=== PATIENT | male | born 1980 | race Two or more races ===

== ENCOUNTER 2016-12-18 17:48 | Emergency (ER) | payer SELFPAY ==
[2016-12-18 18:19] VITALS: BMI 28.5
== END 2016-12-18 18:18 | disposition left against medical advice (07) ==
LOC: ED 17:48
DX: Z02.89 Encounter for other administrative examinations (principal)

== ENCOUNTER 2017-03-26 11:19 | Emergency (ER) | payer SELFPAY ==
[2017-03-26 11:21] VITALS: BMI 28.5
[2017-03-26 11:50] VITALS: O2SAT 100
--- NOTE | 2017-03-26 12:03 | ED PDOC ---
Arrival/HPI - General Chief Complaint: Psychiatric Evaluation Time Seen by Provider: 03/26/17 11:33 Historian: Patient - History of Present Illness Narrative History of Present Illness (Text): 03/26/17 12:04 A 36 year old male with no significant past medical history, presents to the emergency department with complaints of feeling depressed for several months. The patient states that he has been having family problems as well as having lost his job 1 year ago. He notes he has been more irritable than normal lately. He states that he thought it would be a good idea to speak to someone about his depression. The patient denies fevers, chills, headache, dizziness, chest pain, shortness of breath, dyspnea on exertion, cough, abdominal pain, nausea, vomiting, diarrhea, back pain, neck pain, urinary/bowel changes, suicidal/homicidal ideation, auditory/visual hallucination, drug/alcohol use or any other complaint. PMD: None Time/Duration: Other (Several Months) Symptom Onset: Sudden Symptom Course: Unchanged Context: Home Past Medical History - Provider Review Nursing Documentation Reviewed: Yes - Infectious Disease Hx of Infectious Diseases: None - Psychiatric Hx Substance Use: No Family/Social History - Physician Review Nursing Documentation Reviewed: Yes Family/Social History: No Known Family HX (Non-contributory) Smoking Status: Unknown If Ever Smoked Hx Alcohol Use: No Hx Substance Use: No Allergies/Home Meds Allergies/Adverse Reactions: Allergies No Known Allergies Allergy (Verified 12/18/16 17:59) Home Medications: Home Meds Medication Instructions Recorded Confirmed No Known Home Med 12/18/16 03/26/17 Review of Systems - Review of Systems Constitutional: absent: Fevers Respiratory: absent: SOB Cardiovascular: absent: Chest Pain Gastrointestinal: absent: Abdominal Pain Psychiatric: Depression. absent: Suicidal Ideation Physical Exam Vital Signs Reviewed: Yes Vital Signs Temp Pulse Resp BP Pulse Ox 03/26/17 14:22 97.9 F 86 18 150/82 100 03/26/17 11:21 97.8 F 95 H 15 137/84 100 Appearance: Positive for: Well-Appearing, Non-Toxic, Comfortable Pain Distress: None Mental Status: Positive for: Alert and Oriented X 3 - Systems Exam Head: Present: Atraumatic, Normocephalic Pupils: Present: PERRL Extroacular Muscles: Present: EOMI Conjunctiva: Present: Normal Mouth: Present: Moist Mucous Membranes Neck: Present: Normal Range of Motion Respiratory/Chest: Present: Clear to Auscultation, Good Air Exchange. No: Respiratory Distress, Accessory Muscle Use Cardiovascular: Present: Regular Rate and Rhythm, Normal S1, S2. No: Murmurs Abdomen: Present: Normal Bowel Sounds. No: Tenderness, Distention, Peritoneal Signs Back: Present: Normal Inspection Upper Extremity: Present: Normal Inspection. No: Cyanosis, Edema Lower Extremity: Present: Normal Inspection. No: Edema Neurological: Present: GCS=15, CN II-XII Intact, Speech Normal Skin: Present: Warm, Dry, Normal Color. No: Rashes Psychiatric: Present: Alert, Oriented x 3, Normal Insight, Normal Concentration Medical Decision Making ED Course and Treatment: 03/26/17 12:08 Impression: A 36 year old male presents to the emergency department with complaints of feeling depressed. Plan: -- Reassess and disposition Progress Notes: 03/26/17 12:06: PES was paged. 03/26/17 14:08: Patient was evaluated by PES worker. - Scribe Statement The provider has reviewed the documentation as recorded by the Scribe Alia Cheatham Provider Scribe Attestation: All medical record entries made by the Scribe were at my direction and personally dictated by me. I have reviewed the chart and agree that the record accurately reflects my personal performance of the history, physical exam, medical decision making, and the department course for this patient. I have also personally directed, reviewed, and agree with the discharge instructions and disposition. Disposition/Present on Arrival - Present on Arrival Any Indicators Present on Arrival: No History of DVT/PE: No History of Uncontrolled Diabetes: No Urinary Catheter: No History of Decub. Ulcer: No History Surgical Site Infection Following: None - Disposition Have Diagnosis and Disposition been Completed?: Yes Diagnosis: Depression Disposition: HOME/ ROUTINE Disposition Time: 14:11 Condition: STABLE Discharge Instructions (ExitCare): Depression (ED) Additional Instructions: Please follow up with resources provided by the psychiatry service. Return to the ER for any worsening symptoms, suicidal thoughts, or for any other concerns. Referrals: [facility] at [facility] [place] [Outside] - Follow up with primary Forms: [employer] (Persian)
[2017-03-26 14:22] VITALS: BP 150/82; PULSE 86; RESP 18; TEMP 97.9
== END 2017-03-26 14:22 | disposition home or self-care (01) ==
LOC: ED 11:19
DX: F32.9 Major depressive disorder, single episode, unspecified (principal)